=== PATIENT | female | born 1980 | race Caucasian/White ===

== ENCOUNTER 2020-04-21 14:56 | Observation (INO) | payer OTHER ==
[2020-04-21] VITALS (8 sets, daily range): BP systolic 119–131; BP diastolic 54–73; PULSE 66–77; TEMP 98.8–98.9
[~2020-04-21] VITALS: Ht 165.1 cm; Wt 89.5 kg
[2020-04-21] MEDS ORDERED: MOTRIN 800800 MG/TAB PO (16:53)
[2020-04-21] MEDS ORDERED: PERCOCET 325 MG1 TA2 PO (16:54)
--- NOTE | 2020-04-21 17:38 | NUR ---
1738-Patient to floor from PACU via bed. Recieved report from JayashreeRN from PACU. Patient A&Ox4. Denies pain at this time. Bandaids x2 C/D/I. Patient assessment complete. VSS, see recovery flow record.
--- NOTE | 2020-04-21 20:20 | NUR ---
Discharge instructions reviewed with patient and spouse. Patient escorted to POV and discharged home in stable condition.
== END 2020-04-21 20:20 | disposition home or self-care (01) ==
LOC: COL.ER 14:56 → LDRO 17:34 → OB 17:38
PROVIDERS: ADMIT Obstetrics & Gynecology
DX: N83.11 Corpus luteum cyst of right ovary (principal); N83.511 Torsion of right ovary and ovarian pedicle; E66.9 Obesity, unspecified
CPT/HCPCS: J1100; J1885; J2405; J2704; J3010; J7120